=== PATIENT | male | born 1970 | race Caucasian/White ===

== ENCOUNTER 2017-12-02 15:55 | Emergency (ER) | payer MEDICARE, MEDICAID ==
[~2017-12-02] VITALS: Ht 177.8 cm; Wt 66.4 kg
[2017-12-02 16:22] LABS: BASOPHILS # (AUTO) 0.1 X10'3 (0-0.2); BASOPHILS % (AUTO) 0.3 % (0-1); EOSINOPHILS % (AUTO) 0.2 % (0-6); HEMATOCRIT 39.5 % (42.0-52.0); HEMOGLOBIN 12.9 g/dl (14.0-17.9); LYMPHOCYTES # (AUTO) 2.6 X10'3 (1.1-4.8); LYMPHOCYTES % (AUTO) 18.1 % (21-51); MEAN CORPUSCULAR HEMOGLOBIN 28.8 PG (27.0-31.0); MEAN CORPUSCULAR HGB CONC 32.6 % (33.0-36.5); MEAN CORPUSCULAR VOLUME 88.3 FL (78-98); MEAN PLATELET VOLUME 7.6 FL (7.4-10.4); MONOCYTES # (AUTO) 0.6 X10'3 (0-0.9); MONOCYTES % (AUTO) 4.2 % (2-12); NEUTROPHILS # (AUTO) 11.2 X10'3 (1.8-7.7); NEUTROPHILS % (AUTO) 77.2 % (42-75); PLATELET COUNT 265 X10'3 (140-440); RED BLOOD COUNT 4.48 X10'6 (4.70-6.10); RED CELL DISTRIBUTION WIDTH 15.7 % (11.5-14.5); WHITE BLOOD COUNT 14.6 X10'3 (4.5-11.0)
[2017-12-02 16:39] LABS: ALANINE AMINOTRANSFERASE 21 U/L (12-78); ALBUMIN 3.9 G/DL (3.4-5.0); ALBUMIN/GLOBULIN RATIO 1.3 (1.1-1.5); ALKALINE PHOSPHATASE 94 IU/L (46-116); ANION GAP 17 (8-16); ASPARTATE AMINO TRANSFERASE 22 U/L (10-37); BILIRUBIN,TOTAL 0.6 MG/DL (0.1-1.0); BLOOD UREA NITROGEN 13 MG/DL (7-18); BUN/CREATININE RATIO 11.8 (5.4-32.0); CALCIUM 9.1 MG/DL (8.5-10.1); CHLORIDE 100 MMOL/L (99-107); GLUCOSE 67 MG/DL (70-104); POTASSIUM 3.8 MMOL/L (3.5-5.1); SODIUM 137 MMOL/L (135-145); TOTAL CARBON DIOXIDE 20.3 MMOL/L (24-32); TOTAL PROTEIN 6.8 G/DL (6.4-8.2); eGFR 72 ML/MIN
[2017-12-02 16:40] LABS: ETHANOL < 0.010 GM/DL (0.0-0.010)
[2017-12-02 17:36] LABS: URINE AMPHETAMINE SCREEN NEGATIVE (Neg); URINE BARBITUATE SCREEN NEGATIVE (Neg); URINE BENZODIAZEPINES SCREEN NEGATIVE (Neg); URINE CANNABINOID SCREEN NEGATIVE (Neg); URINE COCAINE SCREEN NEGATIVE (Neg); URINE METHADONE SCREEN NEGATIVE (Neg); URINE OPIATE SCREEN NEGATIVE (Neg); URINE PHENCYCLIDINE SCREEN NEGATIVE (Neg)
[2017-12-03] MEDS ORDERED: OLANZapine 2.5MG tablet PO SCH (00:25)
[2017-12-03 07:41] LABS: CLARITY,URINE CLEAR (Clear); COLOR,URINE YELLOW (Yellow); GLUCOSE, URINE NEGATIVE (Neg); KETONES,URINE >=80 mg/dl (Neg); LEUKOCYTE ESTERASE ,URINE NEGATIVE (Neg); NITRITES, URINE NEGATIVE (Neg); OCCULT BLOOD,URINE NEGATIVE (Neg); PROTEIN,URINE NEGATIVE (Neg); UROBILINOGEN,URINE 0.2 E.U/dL (0.2-1.0)
[2017-12-03 07:42] LABS: UA COLLECTION TYPE CLN CATCH MIDSTREAM
[2017-12-03] MEDS ORDERED: LORazepam 1 MG tablet PO ONE (15:20)
[2017-12-03 18:22] VITALS: BP 132/90
[2017-12-03] MEDS ORDERED: LOVA20TA2 PO (20:25)
[2017-12-03] MEDS ORDERED: PROP10TA10 PO (20:25)
[2017-12-03] MEDS ORDERED: CITRUCEL PO (20:25)
[2017-12-03] MEDS ORDERED: MULT-38 PO (20:25)
[2017-12-03] MEDS ORDERED: VENL75CA55 PO (20:25)
[2017-12-03] MEDS ORDERED: CALC200T42 PO (20:25)
[2017-12-03] MEDS ORDERED: CLOZ100T31 PO ×2 (20:25)
== END 2017-12-03 19:22 ==
LOC: ER 15:56
DX: F20.9 Schizophrenia, unspecified (principal); F41.9 Anxiety disorder, unspecified; Z88.8 Allergy status to other drugs, medicaments and biological substances; Z79.899 Other long term (current) drug therapy
CPT/HCPCS: 36415; 71045; 80053; 80305; 80320; 81003; 85025; 99285

== ENCOUNTER 2017-12-03 17:30 | Inpatient (IN) | payer MEDICARE, MEDICAID ==
[~2017-12-03] VITALS: Ht 179.1 cm; Wt 68.7 kg
[2017-12-03] MEDS ORDERED: pneumococcal 23-VAL P-sac vacc 25 mcg/0.5ml vial IMVAC ONE (19:35)
[2017-12-03 20:18] VITALS: BP 113/81
[2017-12-03] MEDS ORDERED: MULT-38 PO (20:25)
[2017-12-03] MEDS ORDERED: LOVA20TA2 PO (20:25)
[2017-12-03] MEDS ORDERED: PROP10TA10 PO (20:25)
[2017-12-03] MEDS ORDERED: CITRUCEL PO (20:25)
[2017-12-03] MEDS ORDERED: CALC200T42 PO (20:25)
[2017-12-03] MEDS ORDERED: CLOZ100T31 PO ×2 (20:25)
[2017-12-03] MEDS ORDERED: VENL75CA55 PO (20:25)
[2017-12-03] MEDS: clozapine 100mg tablet PO SCH (22:45)
[2017-12-03] MEDS: clozapine 25mg tablet PO SCH (22:45)
[2017-12-04 06:04] LABS: CHOL/HDL RATIO 2.6 (0.00-4.99); CHOLESTEROL 196 MG/DL (0-200); HDL CHOLESTEROL 75 MG/DL (35-60); LDL CHOLESTEROL 107 MG/DL (50-100); TRIGLYCERIDES 82 MG/DL (20-135)
[2017-12-04] MEDS: atorvastatin 10mg tablet PO SCH (07:51)
[2017-12-04] MEDS: venlafaxine XR 75mg capsule (Q24H) PO SCH (07:51)
[2017-12-04] MEDS: propranolol 10mg tablet PO SCH ×3 (07:51→20:57)
[2017-12-04] MEDS: multivitamins, therapeutics tablet PO SCH (07:51)
[2017-12-04] MEDS: clozapine 100mg tablet PO SCH ×3 (07:52→20:51)
[2017-12-04 08:00] VITALS: BP 136/88
[2017-12-04] MEDS ORDERED: polyvinyl alcohol ophthalmic drops 15ml bottle EACHEYE PRN (13:30)
[2017-12-04] MEDS: LORazepam 1 MG tablet PO PRN (14:56)
[2017-12-04 20:00] VITALS: BP 91/68
[2017-12-04] MEDS: psyllium seed 3.4 gm packet PO SCH (20:40)
[2017-12-04] MEDS: clozapine 25mg tablet PO SCH (20:51)
[2017-12-04] MEDS: CARBOXYMETHYLCELLULOSE SODIUM 15 ML DROPS EACHEYE PRN (20:53)
[2017-12-05] MEDS: multivitamins, therapeutics tablet PO SCH (07:55)
[2017-12-05] MEDS: venlafaxine XR 75mg capsule (Q24H) PO SCH (07:55)
[2017-12-05] MEDS: propranolol 10mg tablet PO SCH ×3 (07:55→21:28)
[2017-12-05] MEDS: atorvastatin 10mg tablet PO SCH (07:55)
[2017-12-05 08:00] VITALS: BP 125/86
[2017-12-05 08:40] LABS: BASOPHILS % (AUTO) 0.1 % (0-1); EOSINOPHILS # (AUTO) 0.2 X10'3 (0-0.9); EOSINOPHILS % (AUTO) 1.6 % (0-6); HEMOGLOBIN 13.4 g/dl (14.0-17.9); LYMPHOCYTES # (AUTO) 1.8 X10'3 (1.1-4.8); LYMPHOCYTES % (AUTO) 11.6 % (21-51); MEAN CORPUSCULAR HEMOGLOBIN 29.3 PG (27.0-31.0); MEAN CORPUSCULAR HGB CONC 32.6 % (33.0-36.5); MEAN CORPUSCULAR VOLUME 89.9 FL (78-98); MEAN PLATELET VOLUME 8.5 FL (7.4-10.4); MONOCYTES # (AUTO) 1.1 X10'3 (0-0.9); MONOCYTES % (AUTO) 7.2 % (2-12); NEUTROPHILS # (AUTO) 12.4 X10'3 (1.8-7.7); NEUTROPHILS % (AUTO) 79.5 % (42-75); PLATELET COUNT 257 X10'3 (140-440); RED BLOOD COUNT 4.57 X10'6 (4.70-6.10); RED CELL DISTRIBUTION WIDTH 16.1 % (11.5-14.5); WHITE BLOOD COUNT 15.7 X10'3 (4.5-11.0)
[2017-12-05] MEDS: clozapine 100mg tablet PO SCH ×3 (10:17→21:27)
[2017-12-05 13:10] VITALS: BP 94/63
[2017-12-05 19:59] VITALS: BP 113/75
[2017-12-05] MEDS: clozapine 25mg tablet PO SCH (21:27)
[2017-12-05] MEDS: psyllium seed 3.4 gm packet PO SCH (21:27)
[2017-12-05] MEDS: CARBOXYMETHYLCELLULOSE SODIUM 15 ML DROPS EACHEYE PRN (21:32)
[2017-12-05] MEDS: LORazepam 1 MG tablet PO PRN (21:34)
[2017-12-06 08:00] VITALS: BP 109/68
[2017-12-06] MEDS: venlafaxine XR 75mg capsule (Q24H) PO SCH (08:05)
[2017-12-06] MEDS: atorvastatin 10mg tablet PO SCH (08:05)
[2017-12-06] MEDS: propranolol 10mg tablet PO SCH ×3 (08:05→21:07)
[2017-12-06] MEDS: clozapine 100mg tablet PO SCH ×3 (08:06→21:06)
[2017-12-06] MEDS: multivitamins, therapeutics tablet PO SCH (08:06)
[2017-12-06 09:21] LABS: BASOPHILS % (AUTO) 0.3 % (0-1); EOSINOPHILS # (AUTO) 0.2 X10'3 (0-0.9); EOSINOPHILS % (AUTO) 2.3 % (0-6); HEMATOCRIT 36.6 % (42.0-52.0); HEMOGLOBIN 11.9 g/dl (14.0-17.9); LYMPHOCYTES # (AUTO) 1.6 X10'3 (1.1-4.8); LYMPHOCYTES % (AUTO) 16.5 % (21-51); MEAN CORPUSCULAR HEMOGLOBIN 29.4 PG (27.0-31.0); MEAN CORPUSCULAR HGB CONC 32.5 % (33.0-36.5); MEAN CORPUSCULAR VOLUME 90.4 FL (78-98); MEAN PLATELET VOLUME 8.2 FL (7.4-10.4); MONOCYTES # (AUTO) 0.8 X10'3 (0-0.9); MONOCYTES % (AUTO) 8.2 % (2-12); NEUTROPHILS # (AUTO) 6.9 X10'3 (1.8-7.7); NEUTROPHILS % (AUTO) 72.7 % (42-75); PLATELET COUNT 203 X10'3 (140-440); RED BLOOD COUNT 4.05 X10'6 (4.70-6.10); RED CELL DISTRIBUTION WIDTH 15.8 % (11.5-14.5); WHITE BLOOD COUNT 9.5 X10'3 (4.5-11.0)
[2017-12-06 13:00] VITALS: BP 115/78
[2017-12-06] MEDS: LORazepam 1 MG tablet PO PRN ×2 (17:09→21:09)
[2017-12-06 19:00] VITALS: BP 106/67
[2017-12-06] MEDS: clozapine 25mg tablet PO SCH (21:06)
[2017-12-06] MEDS: psyllium seed 3.4 gm packet PO SCH (21:07)
[2017-12-06] MEDS: CARBOXYMETHYLCELLULOSE SODIUM 15 ML DROPS EACHEYE PRN (21:08)
[2017-12-07 08:05] VITALS: BP 121/81
[2017-12-07] MEDS: propranolol 10mg tablet PO SCH ×3 (08:25→21:30)
[2017-12-07] MEDS: venlafaxine XR 75mg capsule (Q24H) PO SCH (08:26)
[2017-12-07] MEDS: clozapine 100mg tablet PO SCH ×2 (08:27→21:29)
[2017-12-07] MEDS: multivitamins, therapeutics tablet PO SCH (08:27)
[2017-12-07] MEDS: atorvastatin 10mg tablet PO SCH (08:27)
[2017-12-07] MEDS: LORazepam 1 MG tablet PO PRN (16:16)
[2017-12-07 20:00] VITALS: BP 103/66
[2017-12-07] MEDS: clozapine 25mg tablet PO SCH (21:29)
[2017-12-07] MEDS: psyllium seed 3.4 gm packet PO SCH (21:30)
[2017-12-08 07:27] VITALS: BP 114/77
[2017-12-08] MEDS: venlafaxine XR 75mg capsule (Q24H) PO SCH (07:58)
[2017-12-08] MEDS: atorvastatin 10mg tablet PO SCH (07:58)
[2017-12-08] MEDS: clozapine 25mg tablet PO SCH ×2 (07:58→20:52)
[2017-12-08] MEDS: multivitamins, therapeutics tablet PO SCH (07:58)
[2017-12-08] MEDS: propranolol 10mg tablet PO SCH ×3 (08:02→20:53)
[2017-12-08 12:25] LABS: CLARITY,URINE CLEAR (Clear); COLOR,URINE YELLOW (Yellow); GLUCOSE, URINE NEGATIVE (Neg); KETONES,URINE NEGATIVE (Neg); LEUKOCYTE ESTERASE ,URINE NEGATIVE (Neg); NITRITES, URINE NEGATIVE (Neg); OCCULT BLOOD,URINE NEGATIVE (Neg); PH,URINE 7.5 (4.8-8.0); PROTEIN,URINE NEGATIVE (Neg); UROBILINOGEN,URINE 0.2 E.U/dL (0.2-1.0)
[2017-12-08 12:26] LABS: UA COLLECTION TYPE CLN CATCH MIDSTREAM
[2017-12-08] MEDS: LORazepam 1 MG tablet PO PRN (12:39)
[2017-12-08] MEDS: clozapine 100mg tablet PO SCH ×2 (12:39→20:52)
[2017-12-08] MEDS ORDERED: HYDROcodone/acetaminophen 10/325mg tab PO PRN ×2 (12:55)
[2017-12-08 19:00] VITALS: BP 102/70
[2017-12-08] MEDS: psyllium seed 3.4 gm packet PO SCH (20:53)
[2017-12-09] MEDS: clozapine 25mg tablet PO SCH ×2 (07:44→21:46)
[2017-12-09] MEDS: venlafaxine XR 75mg capsule (Q24H) PO SCH (07:44)
[2017-12-09] MEDS: atorvastatin 10mg tablet PO SCH (07:44)
[2017-12-09] MEDS: propranolol 10mg tablet PO SCH ×3 (07:44→21:45)
[2017-12-09] MEDS: multivitamins, therapeutics tablet PO SCH (07:44)
[2017-12-09 08:00] VITALS: BP 119/79
[2017-12-09] MEDS: LORazepam 0.5 MG tablet PO PRN ×2 (12:38→21:45)
[2017-12-09] MEDS: clozapine 100mg tablet PO SCH ×2 (12:41→21:46)
[2017-12-09 20:00] VITALS: BP 99/60
[2017-12-09] MEDS: psyllium seed 3.4 gm packet PO SCH (21:46)
[2017-12-10 08:00] VITALS: BP 108/72
[2017-12-10] MEDS: venlafaxine XR 75mg capsule (Q24H) PO SCH (08:04)
[2017-12-10] MEDS: atorvastatin 10mg tablet PO SCH (08:05)
[2017-12-10] MEDS: clozapine 25mg tablet PO SCH ×2 (08:05→21:07)
[2017-12-10] MEDS: multivitamins, therapeutics tablet PO SCH (08:05)
[2017-12-10] MEDS: propranolol 10mg tablet PO SCH ×3 (08:06→21:07)
[2017-12-10] MEDS: LORazepam 0.5 MG tablet PO PRN ×2 (08:20→21:09)
[2017-12-10] MEDS: clozapine 100mg tablet PO SCH ×2 (13:19→21:07)
[2017-12-10 20:00] VITALS: BP 106/65
[2017-12-10] MEDS: psyllium seed 3.4 gm packet PO SCH (21:06)
[2017-12-11] MEDS: venlafaxine XR 75mg capsule (Q24H) PO SCH (07:56)
[2017-12-11] MEDS: atorvastatin 10mg tablet PO SCH (07:56)
[2017-12-11] MEDS: clozapine 25mg tablet PO SCH ×2 (07:56→20:28)
[2017-12-11] MEDS: multivitamins, therapeutics tablet PO SCH (07:56)
[2017-12-11 08:00] VITALS: BP 111/75
[2017-12-11] MEDS: propranolol 10mg tablet PO SCH ×3 (09:21→20:30)
[2017-12-11] MEDS: clozapine 100mg tablet PO SCH ×2 (13:35→20:28)
[2017-12-11] MEDS: LORazepam 0.5 MG tablet PO PRN ×2 (13:35→20:36)
[2017-12-11 19:50] VITALS: BP 100/62
[2017-12-11] MEDS: mirtazapine 15mg tablet PO SCH (20:27)
[2017-12-11] MEDS: psyllium seed 3.4 gm packet PO SCH (20:28)
[2017-12-12 08:00] VITALS: BP 107/69
[2017-12-12] MEDS: venlafaxine XR 75mg capsule (Q24H) PO SCH (08:04)
[2017-12-12] MEDS: multivitamins, therapeutics tablet PO SCH (08:15)
[2017-12-12] MEDS: propranolol 10mg tablet PO SCH ×3 (08:15→21:00)
[2017-12-12] MEDS: clozapine 25mg tablet PO SCH ×2 (08:18→20:11)
[2017-12-12] MEDS: atorvastatin 10mg tablet PO SCH (08:20)
[2017-12-12] MEDS: clozapine 100mg tablet PO SCH ×2 (13:31→20:12)
[2017-12-12] MEDS: nicotine prolacrilex 2mg gum BC PRN (19:43)
[2017-12-12 19:57] VITALS: BP 106/67
[2017-12-12] MEDS: psyllium seed 3.4 gm packet PO SCH (20:09)
[2017-12-12] MEDS: mirtazapine 15mg tablet PO SCH (20:11)
[2017-12-12] MEDS: LORazepam 0.5 MG tablet PO PRN (20:12)
[2017-12-13 07:46] VITALS: BP 112/72
[2017-12-13] MEDS: propranolol 10mg tablet PO SCH ×3 (08:09→20:29)
[2017-12-13] MEDS: venlafaxine XR 75mg capsule (Q24H) PO SCH (08:10)
[2017-12-13] MEDS: clozapine 25mg tablet PO SCH ×2 (08:10→20:28)
[2017-12-13] MEDS: multivitamins, therapeutics tablet PO SCH (08:11)
[2017-12-13] MEDS: atorvastatin 10mg tablet PO SCH (08:11)
[2017-12-13] MEDS: nicotine prolacrilex 2mg gum BC PRN ×3 (08:48→16:34)
[2017-12-13] MEDS: LORazepam 0.5 MG tablet PO PRN ×2 (08:48→20:37)
[2017-12-13] MEDS: clozapine 100mg tablet PO SCH ×2 (12:40→20:28)
[2017-12-13 19:49] VITALS: BP 113/70
[2017-12-13] MEDS: mirtazapine 15mg tablet PO SCH (20:29)
[2017-12-13] MEDS: psyllium seed 3.4 gm packet PO SCH (20:29)
[2017-12-14] MEDS: atorvastatin 10mg tablet PO SCH (08:25)
[2017-12-14] MEDS: venlafaxine XR 75mg capsule (Q24H) PO SCH (08:26)
[2017-12-14] MEDS: multivitamins, therapeutics tablet PO SCH (08:26)
[2017-12-14] MEDS: clozapine 25mg tablet PO SCH ×2 (08:26→21:32)
[2017-12-14] MEDS: propranolol 10mg tablet PO SCH ×3 (08:26→21:32)
[2017-12-14] MEDS: LORazepam 0.5 MG tablet PO PRN ×2 (08:29→21:36)
[2017-12-14 08:44] VITALS: BP 104/66
[2017-12-14] MEDS: nicotine prolacrilex 2mg gum BC PRN ×2 (09:14→20:01)
[2017-12-14] MEDS: clozapine 100mg tablet PO SCH ×2 (13:37→21:32)
[2017-12-14 19:00] VITALS: BP 111/76
[2017-12-14] MEDS: mirtazapine 15mg tablet PO SCH (21:31)
[2017-12-14] MEDS: psyllium seed 3.4 gm packet PO SCH (21:34)
[2017-12-15] MEDS: atorvastatin 10mg tablet PO SCH (08:17)
[2017-12-15] MEDS: venlafaxine XR 75mg capsule (Q24H) PO SCH (08:18)
[2017-12-15] MEDS: propranolol 10mg tablet PO SCH ×2 (08:18→13:32)
[2017-12-15] MEDS: multivitamins, therapeutics tablet PO SCH (08:18)
[2017-12-15] MEDS: clozapine 25mg tablet PO SCH (08:18)
[2017-12-15 08:22] VITALS: BP 104/68
[2017-12-15] MEDS: LORazepam 0.5 MG tablet PO PRN (10:35)
[2017-12-15] MEDS: nicotine prolacrilex 2mg gum BC PRN ×2 (10:35→13:18)
[2017-12-15 13:15] VITALS: BP 102/75
[2017-12-15] MEDS: clozapine 100mg tablet PO SCH (13:32)
[2017-12-15] MEDS ORDERED: ATOR10TA PO (15:19)
[2017-12-15] MEDS ORDERED: CLOZ200T PO (15:19)
[2017-12-15] MEDS ORDERED: VENL225T3 PO (15:19)
[2017-12-15] MEDS ORDERED: CLOZ25TA12 PO (15:19)
[2017-12-15] MEDS ORDERED: NICO2GUM29 BC (15:19)
[2017-12-15] MEDS ORDERED: INDLA60C PO (15:19)
[2017-12-15] MEDS ORDERED: CLOZ100T13 PO (15:19)
[2017-12-15] MEDS ORDERED: MIRT30TA8 PO (15:19)
[2017-12-15] MEDS ORDERED: ATI0.5T PO (16:14)
== END 2017-12-15 18:15 | disposition home or self-care (01) | DRG 885 ==
LOC: ADULT MH 17:30
PROVIDERS: ADMIT Psychiatry & Neurology Psychiatry; ATTEND Psychiatry & Neurology Psychiatry
PROC: 3E0234Z Introduction of Serum, Toxoid and Vaccine into Muscle, Percutaneous Approach (ICD-10-PCS; principal; 2017-12-05)
DX: F25.1 Schizoaffective disorder, depressive type (principal); G21.0 Malignant neuroleptic syndrome; F41.0 Panic disorder [episodic paroxysmal anxiety]; F41.9 Anxiety disorder, unspecified; R00.0 Tachycardia, unspecified; Y90.9 Presence of alcohol in blood, level not specified; J44.9 Chronic obstructive pulmonary disease, unspecified; F17.290 Nicotine dependence, other tobacco product, uncomplicated; K59.00 Constipation, unspecified; D72.829 Elevated white blood cell count, unspecified; R91.8 Other nonspecific abnormal finding of lung field; H04.123 Dry eye syndrome of bilateral lacrimal glands; F10.20 Alcohol dependence, uncomplicated; F60.0 Paranoid personality disorder; Z88.8 Allergy status to other drugs, medicaments and biological substances; Z79.899 Other long term (current) drug therapy; Z23 Encounter for immunization
CPT/HCPCS: 36415; 71046; 80061; 81003; 83036; 85025; 87040; 87070; 87088; 90732

== ENCOUNTER 2018-02-04 12:20 | Emergency (ER) | payer MEDICARE, MEDICAID ==
[~2018-02-04] VITALS: Ht 180.3 cm; Wt 150.0 kg
[~2018-02-04 12:20] MED LIST: ATI0.5T PO; ATOR10TA PO; CITRUCEL PO; CLOZ100T13 PO; CLOZ200T PO; CLOZ25TA12 PO; INDLA60C PO; MIRT30TA8 PO; MULT-38 PO; NICO2GUM29 BC; VENL225T3 PO
[2018-02-04] MEDS ORDERED: LORazepam 1 MG tablet PO ONE (13:05)
[2018-02-04 13:30] LABS: BASOPHILS % (AUTO) 0.2 % (0-1); EOSINOPHILS # (AUTO) 0.1 X10'3 (0-0.9); EOSINOPHILS % (AUTO) 0.6 % (0-6); HEMATOCRIT 37.7 % (42.0-52.0); HEMOGLOBIN 12.4 g/dl (14.0-17.9); LYMPHOCYTES # (AUTO) 1.6 X10'3 (1.1-4.8); LYMPHOCYTES % (AUTO) 11.7 % (21-51); MEAN CORPUSCULAR HEMOGLOBIN 29.4 PG (27.0-31.0); MEAN CORPUSCULAR HGB CONC 32.8 % (33.0-36.5); MEAN CORPUSCULAR VOLUME 89.7 FL (78-98); MEAN PLATELET VOLUME 8.1 FL (7.4-10.4); MONOCYTES # (AUTO) 0.5 X10'3 (0-0.9); MONOCYTES % (AUTO) 3.5 % (2-12); NEUTROPHILS # (AUTO) 11.7 X10'3 (1.8-7.7); PLATELET COUNT 243 X10'3 (140-440); RED CELL DISTRIBUTION WIDTH 16.1 % (11.5-14.5)
[2018-02-04 13:54] LABS: ALANINE AMINOTRANSFERASE 22 U/L (12-78); ALBUMIN 3.5 G/DL (3.4-5.0); ALBUMIN/GLOBULIN RATIO 1.1 (1.1-1.5); ALKALINE PHOSPHATASE 82 IU/L (46-116); ANION GAP 9 (8-16); ASPARTATE AMINO TRANSFERASE 13 U/L (10-37); BILIRUBIN,TOTAL 0.4 MG/DL (0.1-1.0); BLOOD UREA NITROGEN 13 MG/DL (7-18); BUN/CREATININE RATIO 12.4 (5.4-32.0); CALCIUM 9.3 MG/DL (8.5-10.1); CHLORIDE 106 MMOL/L (99-107); CREATININE 1.05 MG/DL (0.60-1.10); ETHANOL < 0.010 GM/DL (0.0-0.010); GLUCOSE 98 MG/DL (70-104); LIPASE 149 U/L (73-393); POTASSIUM 3.8 MMOL/L (3.5-5.1); SODIUM 142 MMOL/L (135-145); TOTAL CARBON DIOXIDE 27.5 MMOL/L (24-32); TOTAL PROTEIN 6.6 G/DL (6.4-8.2); eGFR 76 ML/MIN
[2018-02-04 14:42] VITALS: BP 111/83
== END 2018-02-04 14:43 | disposition home or self-care (01) ==
LOC: ER 12:21
DX: R07.9 Chest pain, unspecified (principal); Z79.899 Other long term (current) drug therapy; Z88.8 Allergy status to other drugs, medicaments and biological substances
CPT/HCPCS: 36415; 71046; 80053; 80320; 83690; 83735; 84484; 85025; 93005; 99284